=== PATIENT | female | born 1980 | race Caucasian/White ===

== ENCOUNTER 2018-01-23 19:30 | Emergency (ER) | payer OTHER ==
[2018-01-23] MEDS ORDERED: NS(*) 0.9% 1000 ML BAG 1,000 ML IV ONE (19:48)
[2018-01-23] MEDS ORDERED: fentaNYL CITR 100 MCG/2 ML AMP IVP ONE (19:50)
[2018-01-23] MEDS ORDERED: ASPIRIN 81 MG CHEW PO ONE (19:50)
[2018-01-23] MEDS ORDERED: diphenhydrAMINE 50 MG/ML VIAL IVP ONE (19:50)
[2018-01-23] MEDS ORDERED: PROMETHAZINE 25 MG/ML 1 ML AMP IVP ONE (19:50)
--- NOTE | 2018-01-23 19:53 | ER Report ---
History and Physical Time Seen By MD: 19:52 Hx. of Stated Complaint: pt has severe headache since this morning back and front, feeling like she is going to pass out HPI/ROS 37-year-old female ambulatory to ER is tearful holding her head states that she' s had global headache since this morning has felt like she is presyncopal has a history of headaches is been seen by her primary care physician who is treating thyroid disease did not take any medications prior to arrival upon arrival clutch chest since that she felt some chest pressure had not had that sensation before no cardiac history Allergies: Coded Allergies: No Known Drug Allergies (Unverified , 01/23/18) Home Meds Active Scripts Lorazepam (ATIVAN) 0.5 Mg Tablet, 0.5 MG PO Q4-6H, #14 Prov:LUKASZ PHILLIPS 01/23/18 Past Medical/Surgical History hypothyroid Hx Smoking: No Exposure to Second Hand Smoke?: No Hx Substance Use Disorder: No Hx Alcohol Use: No Family History of: HTN Constitutional Vital Sign - Last 24 Hours 01/23/18 19:39 Temp 99.8 Pulse 78 Resp 20 B/P (MAP) 124/74 Pulse Ox 98 O2 Delivery Room Air Physical Exam 37-year-old female tearful mild distress HEENT has normocephalic/atraumatic tympanic membranes are non-reddened throat is non-reddened mucous membranes are moist neck is supple no JVD pupils equal round react to light GCS is 15 EOM intact cranial nerves grossly intact 2-12 heart rate is regular no murmurs rubs and gallops lungs clear to auscultation abdomen is soft bowel sounds 4 quadrants moves all extremities Medical Decision Making Data Points Result Diagram: 01/23/18200701/23/182007 Laboratory Hematology Test 01/23/18 20:08 Red Blood Count 5.03 M/uL (4.17-5.56) Mean Corpuscular Volume 91.7 fL (80.0-96.0) Mean Corpuscular Hemoglobin 31.4 pg (26.0-33.0) Mean Corpuscular Hemoglobin Concent 34.2 g/dL (32.0-36.0) Red Cell Distribution Width 13.5 % (11.5-14.5) Mean Platelet Volume 7.6 fL (7.2-11.1) Neutrophils (%) (Auto) 46.2 % (39.4-72.5) Lymphocytes (%) (Auto) 44.5 % (17.6-49.6) Monocytes (%) (Auto) 5.6 % (4.1-12.4) Eosinophils (%) (Auto) 2.6 % (0.4-6.7) Basophils (%) (Auto) 1.1 % (0.3-1.4) Nucleated RBC Relative Count (auto) 0.0 /100WBC Neutrophils # (Auto) 4.5 K/uL (2.0-7.4) Lymphocytes # (Auto) 4.4 K/uL (1.3-3.6) Monocytes # (Auto) 0.5 K/uL (0.3-1.0) Eosinophils # (Auto) 0.3 K/uL (0.0-0.5) Basophils # (Auto) 0.1 K/uL (0.0-0.1) Nucleated RBC Absolute Count (auto) 0.00 K/uL D-Dimer Quantitative (PE/DVT) 0.27 ug/ml (0-0.50) Sodium Level 140 mmol/L (137-145) Potassium Level 3.8 mmol/L (3.5-5.0) Chloride Level 108 mmol/L (98-107) Carbon Dioxide Level 24 mmol/L (22-31) Blood Urea Nitrogen 10 mg/dl (7-18) Creatinine 0.70 mg/dl (0.52-1.04) Glomerular Filtration Rate Calc > 60.0 Random Glucose 107 mg/dl (75-110) Calcium Level 9.4 mg/dl (8.4-10.2) Total Bilirubin 0.4 mg/dl (0.2-1.3) Aspartate Amino Transf (AST/SGOT) 20 U/L (0-35) Alanine Aminotransferase (ALT/SGPT) 28 U/L (0-56) Alkaline Phosphatase 61 U/L (0-126) Troponin I < 0.012 ng/ml Total Protein 7.7 gm/dl (6.3-8.2) Albumin 4.3 g/dl (3.5-5.0) Lipase 109 U/L (23-300) Chemistry Test 01/23/18 20:08 White Blood Count 9.8 k/uL (4.5-11.0) Red Blood Count 5.03 M/uL (4.17-5.56) Hemoglobin 15.8 g/dL (12.0-16.0) Hematocrit 46.1 % (34.0-47.0) Mean Corpuscular Volume 91.7 fL (80.0-96.0) Mean Corpuscular Hemoglobin 31.4 pg (26.0-33.0) Mean Corpuscular Hemoglobin Concent 34.2 g/dL (32.0-36.0) Red Cell Distribution Width 13.5 % (11.5-14.5) Platelet Count 265 K/uL (150-450) Mean Platelet Volume 7.6 fL (7.2-11.1) Neutrophils (%) (Auto) 46.2 % (39.4-72.5) Lymphocytes (%) (Auto) 44.5 % (17.6-49.6) Monocytes (%) (Auto) 5.6 % (4.1-12.4) Eosinophils (%) (Auto) 2.6 % (0.4-6.7) Basophils (%) (Auto) 1.1 % (0.3-1.4) Nucleated RBC Relative Count (auto) 0.0 /100WBC Neutrophils # (Auto) 4.5 K/uL (2.0-7.4) Lymphocytes # (Auto) 4.4 K/uL (1.3-3.6) Monocytes # (Auto) 0.5 K/uL (0.3-1.0) Eosinophils # (Auto) 0.3 K/uL (0.0-0.5) Basophils # (Auto) 0.1 K/uL (0.0-0.1) Nucleated RBC Absolute Count (auto) 0.00 K/uL D-Dimer Quantitative (PE/DVT) 0.27 ug/ml (0-0.50) Glomerular Filtration Rate Calc > 60.0 Calcium Level 9.4 mg/dl (8.4-10.2) Total Bilirubin 0.4 mg/dl (0.2-1.3) Aspartate Amino Transf (AST/SGOT) 20 U/L (0-35) Alanine Aminotransferase (ALT/SGPT) 28 U/L (0-56) Alkaline Phosphatase 61 U/L (0-126) Troponin I < 0.012 ng/ml Total Protein 7.7 gm/dl (6.3-8.2) Albumin 4.3 g/dl (3.5-5.0) Lipase 109 U/L (23-300) Coagulation Test 01/23/18 20:08 D-Dimer Quantitative (PE/DVT) 0.27 ug/ml EKG/Imaging EKG Interpretation Initial EKG 195 normal sinus rhythm ventricular rate 89 and QTc 467, 2nd EKG normal sinus rhythm with sinus arrhythmia ventricular rate 72 QTCs 459 Monitor Interpretation: Normal Sinus Rhythm Imaging Chest x-ray and CAT scan of the head both read as negative ED Course/Re-evaluation Clinical Indication for ER IV: Hydration ED Course Lab work CAT scan of the had chest x-ray were all negative patient feels better after IV fluids and medication we'll allow her to go home follow up closely with primary care physician Re-evaluation Pain-free after treatment water fell home follow-up with primary care physician Decision to Disposition Date: Jan 23, 2018 Decision to Disposition Time: 20:40 Depart Departure Latest Vital Signs Vital Signs Date Time Temp Pulse Resp B/P (MAP) Pulse Ox O2 Delivery O2 Flow Rate FiO2 01/23/18 19:39 99.8 78 20 124/74 98 Room Air Impression: Primary Impression: GENERALIZED ANXIETY DISORDER Additional Impression: Headache Condition: Improved Disposition: HOME OR SELF-CARE Referrals: [facility] 5 Days New Scripts Lorazepam (ATIVAN) 0.5 Mg Tablet 0.5 MG PO Q4-6H, #14 Prov: LUKASZ PHILLIPS 01/23/18 Patient Instructions: Anxiety (ED), Migraine Headache (ED) Problem Qualifiers LUKASZ PHILLIPS Jan 23, 2018 19:53
[2018-01-23 20:20] LABS: PLATELET COUNT, AUTOMATED 265 K/uL (150-450)
--- NOTE | 2018-01-23 21:14 | RADIOLOGY IMAGING REPORT ---
FACILITY: [facility] PATIENT NAME: Tracy Elam : 1980 MR: [id number] V: [id number] EXAM DATE: ORDERING PHYSICIAN: LUKASZ PHILLIPS TECHNOLOGIST: Location: [facility] Patient: Tracy Elam : 1980 Visit/Account:[id number] Date of Sevice: 01/23/2018 HISTORY: Chest pain DATE: 01/23/2018 7:48 PM TECHNIQUE: CHEST PA AND LAT COMPARISON: none FINDINGS: The cardiomediastinal silhouette is of normal size and contour. No pleural effusion. No pne umothorax. No consolidation. The lungs are adequately expanded. IMPRESSION: Normal chest. Report Dictated By: Zachariah Jalloh MD at 01/23/2018 9:09 PM Report E-Signed By: Zachariah Jalloh MD at 01/23/2018 9:09 PM WSN:[id number]
[2018-01-23] MEDS ORDERED: LORA-1455 PO (21:17)
--- NOTE | 2018-01-23 21:18 | RADIOLOGY IMAGING REPORT ---
FACILITY: [facility] [place] PATIENT NAME: Tracy Elam : 1980 MR: [id number] V: [id number] EXAM DATE: ORDERING PHYSICIAN: LUKASZ PHILLIPS TECHNOLOGIST: Location: [facility] Patient: Tracy Elam : 1980 Visit/Account:[id number] Date of Sevice: 01/23/2018 CT OF THE BRAIN WITHOUT CONTRAST HISTORY: Headache PROCEDURE: 3.0 mm contiguous axial sections were performed through the brain. Sagittal and coronal r eformats were submitted. COMPARISON: None FINDINGS: BRAIN: Brain and intracranial structures: There is no mass lesion, hemorrhage or acute infarct. Orbits (included portions): Normal. Scalp: Normal. Skull: Normal. Paranasal sinuses and mastoid air cells (included portions): Minimal ethmoid mucosal and maxillary mu cosal thickening. IMPRESSION: No evidence of acute intracranial abnormality. One of the following dose optimization techniques was utilized in the performance of this exam: Autom ated exposure control; adjustment of the mA and/or kV according to the patient's size; or use of an i terative reconstruction technique. Specific details can be referenced in the facility's radiology C T exam operational policy. Report Dictated By: Zachariah Jalloh MD at 01/23/2018 9:09 PM Report E-Signed By: Zachariah Jalloh MD at 01/23/2018 9:14 PM WSN:[id number]
[2018-01-23 22:00] VITALS: BP 115/75
--- NOTE | 2018-01-23 22:13 | EKG ---
FACILITY: [facility] PATIENT NAME: CATHY FRANCISCO : [id number] MR: [id number] V: [id number] EXAM DATE: ORDERING PHYSICIAN: LUKASZ PHILLIPS TECHNOLOGIST: OLYA Test Reason : NEURO Blood Pressure : / mmHG Vent. Rate : 089 BPM Atrial Rate : 100 BPM P-R Int : 146 ms QRS Dur : 078 ms QT Int : 384 ms P-R-T Axes : 064 041 054 degrees QTc Int : 467 ms Normal sinus rhythm with sinus arrhythmia Normal ECG No previous ECGs available Confirmed by JAEL MORRIS ([id number]) on 01/23/2018 10:37:40 PM Referred By: Confirmed By:JAEL MORRIS
--- NOTE | 2018-01-23 22:13 | EKG ---
FACILITY: [facility] [place] PATIENT NAME: CATHY FRANCISCO : [id number] MR: [id number] V: [id number] EXAM DATE: ORDERING PHYSICIAN: LUKASZ PHILLIPS TECHNOLOGIST: OLYA Test Reason : CONT. CP Blood Pressure : / mmHG Vent. Rate : 072 BPM Atrial Rate : 072 BPM P-R Int : 148 ms QRS Dur : 078 ms QT Int : 420 ms P-R-T Axes : 049 027 048 degrees QTc Int : 459 ms Normal sinus rhythm with sinus arrhythmia Normal ECG When compared with ECG of 23-JAN-2018 19:54, No significant change was found Confirmed by JAEL MORRIS ([id number]) on 01/23/2018 10:37:48 PM Referred By: Confirmed By:JAEL MORRIS
== END 2018-01-23 22:29 | disposition home or self-care (01) ==
LOC: ER 20:08
DX: F41.1 Generalized anxiety disorder (principal); R51 Headache; I49.9 Cardiac arrhythmia, unspecified
CPT/HCPCS: 70450; 71046; 83690; 84484; 85025; 85379; 85651; 93005; 96361; 96374; 99284; J1200; J7030; 82040; 82247; 82310; 82374; 82435; 82565; 82947; 84075; 84132; 84155; 84295; 84450; 84460; 84520

== ENCOUNTER → 2018-01-26 | Outpatient (CLI) | payer OTHER ==
[~2018-01-26] MED LIST: LORA-1455 PO
--- NOTE | 2018-01-29 16:10 | RT HOLTER TEST ---
FACILITY: [facility] PATIENT NAME: CATHY FRANCISCO : [id number] MR: [id number] V: [id number] EXAM DATE: ORDERING PHYSICIAN: ADEEL SUAREZ TECHNOLOGIST: PRO Hook-up date: 2018-01-26 17:11:00 Duration: 46:46:00 Test Indications: PALPITATIONS Medications: N/A [id number] QRS complexes 23 Ventricular ectopics which represent <1 % of total QRS comp. 2 Supraventricular ectopics which represent <1 % of total QRS comp. * Paced QRS complexes which represent % of total QRS comp. VENTRICULAR ECTOPY 23 Isolated 0 Bigeminal Cycles 0 Couplets 0 Runs 0 Beats in Runs * Beats LONGEST at * BPM at :: -- * Beats FASTEST at * BPM at :: -- SUPRAVENTRICULAR ECTOPY 2 Isolated 0 Couplets 0 Runs 0 Beats in Runs * Beats LONGEST at * BPM at :: -- * Beats FASTEST at * BPM at :: -- HEART RATES 53 MIN at 00:33:51 2018-01-28 90 AVG 162 MAX at 07:46:39 2018-01-27 LONGEST RR 1.280 secs at 01:16:01 2018-01-28 S-T LEVELS Channel 1 -12.800 mm MIN at 17:11:00 2018-01-2612.800 mm MAX at 17:11:00 2018-01-26 Channel 2 -12.800 mm MIN at 17:11:00 2018-01-2612.800 mm MAX at 17:11:00 2018-01-26 Channel 3 -12.800 mm MIN at 17:11:00 2018-01-2612.800 mm MAX at 17:11:00 2018-01-26 Rare ventricular ectopy. No couplets, triplets, or runs. Very rare supraventricular ectopy. No couplets, triplets, or runs were noted. Episodes of sinus tachycardia during usual waking hours and sinus bradycardia during usual sleeping h ours are noted. No pauses were recorded. Confirmed by LUCY MORROW ([id number]) on 01/29/2018 4:10:22 PM Referred By: Overread By: LUCY MORROW
== END ==
LOC: RESP 16:55
PROVIDERS: ATTEND Family Medicine
DX: R00.2 Palpitations (principal)
CPT/HCPCS: 93225; 93226

== ENCOUNTER → 2019-01-02 | Outpatient (CLI) | payer BC, OTHER ==
--- NOTE | 2019-01-02 10:22 | RADIOLOGY IMAGING REPORT ---
FACILITY: [facility] PATIENT NAME: Tracy Elam : 1980 MR: [id number] V: [id number] EXAM DATE: ORDERING PHYSICIAN: NURIA MCKINNON TECHNOLOGIST: Location: [facility] [place] Patient: Tracy Elam : 1980 Visit/Account:[id number] Date of Sevice: 01/02/2019 THYROID EXAMINATION: Thyroid ultrasound HISTORY: Hypothyroidism COMPARISON: None. FINDINGS: Thyroid size: Right lobe 3.96 x 1.54 x 1.55 cm Left lobe 3.28 x 1.08 x 1.56 cm Isthmus 0.32 cm Thyroid nodules: Right lobe - there is a heterogenous isoechoic thyroid with bands of fibrous tissue within the thyroid gland. No distinct mass seen. Left lobe - heterogenous thyroid gland with no distinct mass lesion seen. Isthmus - none Thyroid vascularity: normal IMPRESSION: Negative ultrasound for acute thyroid pathology or any concerning mass lesions. Report Dictated By: Jah Montelongo MD at 01/02/2019 9:58 AM Report E-Signed By: Jah Montelongo MD at 01/02/2019 10:17 AM WSN:[email or web address]
== END ==
LOC: US 01:37
PROVIDERS: ATTEND Internal Medicine Endocrinology, Diabetes & Metabolism
DX: E04.2 Nontoxic multinodular goiter (principal)
CPT/HCPCS: 36415; 76536; 84439; 84443